=== PATIENT | female | born 1990 | race Caucasian/White ===

== ENCOUNTER 2016-06-01 07:57 | Day surgery (SDC) | payer BC, OTHER ==
[~2016-06-01 07:57] MED LIST: RINGERS SOLUTION,LACTATED 1,000 ML IV PRN; ceFAZolin SODIUM 1 GM VIAL IV PRN
--- OUTSIDE RECORDS SUMMARY | 2016-06-01 08:01 | XMS REPORT | Continuity of Care Document ---
:1990 Author Organization [employer] [place] [address] Care Team Providers Name Role Phone Unavailable Primary Care Provider Unavailable Source Comments This disclosure is being made pursuant to the [employer] program and maynot contain all information available regarding this patient.[employer] Active Allergies and Adverse Reactions Not on File Current Medications Be aware that medications may not be up to date as of this document. Alwaysverify current medications with the patient. Not on file Active Problems Not on file Social History Tobacco Use Types Packs/Day Years Used Date Never Assessed Plan of Care Health Maintenance Due Date Last Done Comments HPV Vaccine ([id number]) (1 of 3 - Female 3 Dose Series) 10/23/2002 Chlamydia Screening 2007 Tetanus/Pertussis (1 - Tdap) 10/23/2010 Pap Smear 10/23/2012 Influenza Immunization (#1) 2015 Results from Last 3 Months Not on file
--- OUTSIDE RECORDS SUMMARY | 2016-06-01 08:01 | XMS REPORT | Continuity of Care Document ---
:1990 Demographics Phone Unavailable Preferred Language Unknown Marital Status Unknown Buddhism Affiliation Unknown Race Unknown Ethnic Group Unknown Author Organization [facility] ([facility]) Address [address] [place] [address] Phone [phone] Care Team Providers Name Role Phone Unavailable Primary Care Provider Unavailable Source Comments This disclosure is being made pursuant to the Care Everywhere program, applicable federal and state laws, and may not contain all informaitonavailable regarding this patient.[facility] ([facility]) Active Allergies and Adverse Reactions Not on File Current Medications Not on file Active Problems Not on file Social History Tobacco Use Types Packs/Day Years Used Date Never Assessed Plan of Care Health Maintenance Due Date Last Done Comments Hepatitis B Vaccine (1 of 3 - Primary Series) 1990 HPV Vaccine (1 of 3 - Female/Unknown 3 Dose Series) 10/23/2002 Tdap Vaccine 10/23/2002 Cervical Cancer Screening 10/23/2009 Lipid Disorder Screening 10/23/2009 MMR Vaccine 10/23/2009 Td Vaccine 10/23/2009 Varicella Vaccine (1 of 2 - Adult - No Evidence of 10/23/2009 Immunity) Influenza Vaccine: Seasonal (#1) 09/15/2015 Results from Last 3 Months Not on file
[2016-06-01 08:07] VITALS: BP 128/75
--- NOTE | 2016-06-01 09:07 | PN ---
Progess Note - Interim Narrative: 06/01/16 08:58 H&P Update Note I saw the patient in pre-op this morning for re-evaluation. After discussion, her primary complaint at this point regarding her L knee is instability. She does not have that much pain unless she tries to run or twists it wrong and it gives out. Upon further questioning, her knee has been bothering her for over a year and has felt "unstable" for a long time. It wasn't until this most recent fall in the shower that it really started giving out more and feeling more unstable. Exam: MSK: L knee--> no swelling, minimal effusion, slightly decreased quad tone, stable to varus and valgus stress, positive Griselda's at 30 deg, increased translation with anterior drawer, posterior drawer negative, 4+/5 quad strength , SILT, cap refill brisk MRI reviewed, which demonstrates a small tear of the posterior horn medial meniscus as well as what appears to be disruption of her previous ACL graft. Assessment/Plan: 25 yo F w/ failed L knee ACL reconstruction and continued instability. I discussed with the patient that a knee arthroscopy to only address the meniscus would not change her instability symptoms. Her instability is the real issue here and needs to be addressed with either functional bracing and PT or possible revision ACL reconstruction and addressing the meniscal injury at that time. My plan is to get her fit for a functional ACL brace and refer her out for evaluation for possible revision ACL reconstruction. We are cancelling her knee arthroscopy that was scheduled today. The patient understands all of this and was in agreement.
== END 2016-06-01 07:58 | disposition home or self-care (01) ==
LOC: AMB 07:57
PROVIDERS: ATTEND Orthopaedic Surgery
DX: Z53.8 Procedure and treatment not carried out for other reasons (principal)